=== PATIENT | female | born 1985 | race Caucasian/White ===

== ENCOUNTER 2017-11-20 12:38 | Emergency (ER) | payer SELFPAY ==
[~2017-11-20] VITALS: Ht 170.2 cm; Wt 137.0 kg
[~2017-11-20 12:38] MED LIST: MELO15TA2 PO; NUVAMIS PV
[2017-11-20 12:58] VITALS: BP 148/101; PULSE 128; RESP 20; TEMP 102.4
[2017-11-20] MEDS ORDERED: SODIUM CHLOR 0.9% 1000 ML INJ 1,000 ML IV SCH (13:55)
[2017-11-20] MEDS ORDERED: SODIUM CHLORIDE 0.9% FLUSH 10 ML FLUSH IV FLUSH PRN (14:00)
[2017-11-20] MEDS ORDERED: ACETAMINOPHEN 500 MG CPLT PO ONE (14:00)
[2017-11-20] MEDS ORDERED: ONDANSETRON HCL 4 MG/2 ML VIAL IVP ONE (14:00)
[2017-11-20] MEDS ORDERED: IBUPROFEN 600 MG TAB PO ONE (14:00)
[2017-11-20 14:07] VITALS: O2SAT 98
[2017-11-20 15:03] LABS: BACTERIA, URINE RARE /hpf; BILIRUBIN, URINE NEG (NEG); BLOOD, URINE MOD (NEG); GLUCOSE,URINE NEG (NEG); KETONE, URINE NEG (NEG); MUCUS URINE FEW /lpf (OCC); NITRITE,URINE NEG (NEG); SQUAMOUS EPITHELIAL CELL URINE 4 /hpf (0-5); URINE COLOR YELLOW (YELLW/STRAW); URINE LEUKOCYTE ESTERASE TRACE (NEG)
--- NOTE | 2017-11-20 15:04 | PD ---
HPI Chief Complaint: Cold / Flu Symptoms Time Seen by Provider: 13:48 Travel History International Travel<30 days: No Contact w/Intl Traveler<30days: No History of Present Illness HPI 32-year-old -[place] female presents emergency department with flulike symptoms for the past 3 days. She has general malaise, decreased appetite, nausea, no vomiting, no diarrhea, cough, upper respiratory congestion, fever, chills, and muscle aches. Patient denies significant shortness of breath but has cough without wheeze. Patient states she feels dehydrated. She denies urinary symptoms. No vaginal symptoms. She is allergic to penicillin PFSH Past Medical History ?: Not LMP: on it now Past Surgical History Tonsillectomy: Yes Social History Alcohol Use: No Tobacco Use: No Substance Use: No Allergies-Medications (Allergen,Severity, Reaction): Coded Allergies: penicillin G (Unverified Allergy, Severe, HIVES, 11/20/17) Reported Meds & Prescriptions Reported Meds & Active Scripts Active No Active Prescriptions or Reported Medications Review of Systems Except as stated in HPI: all other systems reviewed are Neg General / Constitutional: Positive: Fever, Chills Eyes: No: Visual changes HENT: Positive: Headaches, Lightheadedness, Sore Throat, Rhinitis, Rhinorrhea, Congestion, No: Vertigo, Nosebleed, Neck Stiffness, Neck Pain, Dental Difficulties, Earache Cardiovascular: No: Chest Pain or Discomfort Respiratory: Positive: Cough, No: Shortness of Breath, Wheezing, Sneezing, Orthopnea, Hemoptysis, Pleuritic Pain Gastrointestinal: Positive: Nausea, Loss of Appetite, No: Vomiting, Diarrhea, Abdominal Pain Genitourinary: Positive: Decreased Urinary Output, No: Urgency, Frequency, Dysuria Musculoskeletal: No: Pain Skin: No Rash Neurologic: No: Weakness Psychiatric: No: Depression Endocrine: No: Polydipsia Hematologic/Lymphatic: No: Easy Bruising Physical Exam Narrative GENERAL: Patient appears ill. SKIN: Warm and dry. Decreased pallor. Normal turgor. HEAD: Atraumatic. Normocephalic. EYES: Pupils equal and round. No scleral icterus. No injection or drainage. ENT: No nasal bleeding or discharge. Mucous membranes pink and moist. TMs are dull without injection. Posterior pharynx has no significant injection or exudate. No significant tonsillitis or exudate. Airways patent NECK: Trachea midline. Supple and nontender. CARDIOVASCULAR: Regular rate and rhythm. No murmurs gallops or rubs. RESPIRATORY: No accessory muscle use. Clear to auscultation. Breath sounds equal bilaterally. GASTROINTESTINAL: Abdomen soft, non-tender, nondistended. Hepatic and splenic margins not palpable. No CVA tenderness. MUSCULOSKELETAL: Extremities without clubbing, cyanosis, or edema. No obvious deformities. NEUROLOGICAL: Awake and alert. No obvious cranial nerve deficits. Motor grossly within normal limits. Five out of 5 muscle strength in the arms and legs. Normal speech. PSYCHIATRIC: Appropriate mood and affect; insight and judgment normal. Data Data Last Documented VS Vital Signs Date Time Temp Pulse Resp B/P (MAP) Pulse Ox O2 Delivery O2 Flow Rate FiO2 11/20/17 14:07 98 Room Air 11/20/17 12:58 102.4 128 20 148/101 (117) Orders Orders Acetaminophen (Tylenol) (11/20/17 14:00) Ibuprofen (Motrin) (11/20/17 14:00) Influenzae A/B Antigen (11/20/17 13:49) Urinalysis - C+S If Indicated (11/20/17 13:55) Iv Access Insert/Monitor (11/20/17 13:55) Ecg Monitoring (11/20/17 13:55) Oximetry (11/20/17 13:55) Ondansetron Inj (Zofran Inj) (11/20/17 14:00) Sodium Chlor 0.9% 1000 Ml Inj (Ns 1000 M (11/20/17 13:55) Sodium Chloride 0.9% Flush (Ns Flush) (11/20/17 14:00) Chest, Single Ap (11/20/17 13:55) Ed Urine Pregnancytest Poc (11/20/17 13:55) Labs Laboratory Tests Test 11/20/17 14:06 Urine Color YELLOW Urine Turbidity HAZY Urine pH 6.0 Urine Specific [place] 1.012 Urine Protein TRACE mg/dL Urine Glucose (UA) NEG mg/dL Urine Ketones NEG mg/dL Urine Occult Blood MOD Urine Nitrite NEG Urine Bilirubin NEG Urine Urobilinogen LESS THAN 2.0 MG/DL Urine Leukocyte Esterase TRACE Urine RBC /hpf Urine WBC 6 /hpf Urine Squamous Epithelial Cells 4 /hpf Urine Bacteria RARE /hpf Urine Mucus FEW /lpf Microscopic Urinalysis Comment CULT NOT INDICATED MDM Medical Decision Making Medical Screen Exam Complete: Yes Emergency Medical Condition: Yes Differential Diagnosis Influenza. Febrile illness. Dehydration. Nausea. Pneumonia. Narrative Course IV access is obtained. Patient is given 1000 mg acetaminophen p.o., 600 mg ibuprofen p.o., and Zofran 4 mg IV. Patient is given 1000 mL of normal saline bolus. Urinalysis, chest x-ray is ordered, and influenza is sent. Urinalysis is unremarkable. Chest x-ray is unremarkable. Rapid influenza is negative. Patient feels improved after her ibuprofen, Zofran, and Tylenol. Patient is discharged home with diagnosis of febrile illness/viral illness. She is given a prescription for Zofran 4 mg every 6 hours as needed nausea #12. Patient is to rest, push fluids, take ibuprofen and Tylenol as needed for fever , and return if symptoms worsen. Work note was given through Friday. Diagnosis Primary Impression: Systemic viral illness Patient Instructions: Acetaminophen (By mouth), General Instructions, Ibuprofen (By mouth), Ondansetron (By mouth, Into the mouth) Departure Forms: Work Release Enter return to work date: Nov 24, 2017 Additional Instructions: Urinalysis is unremarkable. Chest x-ray is unremarkable. Rapid influenza is negative. Patient feels improved after her ibuprofen, Zofran, and Tylenol. Patient is discharged home with diagnosis of febrile illness/viral illness. She is given a prescription for Zofran 4 mg every 6 hours as needed nausea #12. Patient is to rest, push fluids, take ibuprofen and Tylenol as needed for fever , and return if symptoms worsen. Work note was given through Friday. Med/Other Pt SpecificInfo: Prescription(s) given Scripts No Active Prescriptions or Reported Meds Disposition: 01 DISCHARGE HOME Condition: Stable Akin Mock Nov 20, 2017 15:04
--- NOTE | 2017-11-20 15:16 | RADRPT ---
EXAM DATE/TIME: 11/20/2017 14:45 [facility] COMPARISON: No previous studies available for comparison. INDICATIONS : Cough, fever, and shortness of breath for 4 days. MEDICAL HISTORY : None. SURGICAL HISTORY : None. ENCOUNTER: Initial ACUITY: 4 - 6 days PAIN SCORE: 0/10 LOCATION: Bilateral chest FINDINGS: A single view of the chest demonstrates the lungs to be symmetrically aerated without evidence of mas s, infiltrate or effusion. The cardiomediastinal contours are unremarkable. Osseous structures are intact. CONCLUSION: No acute disease. Shen Montenegro MD on November 20, 2017 at 15:13 Board Certified Radiologist. This report was verified electronically.
[2017-11-20] MEDS ORDERED: ZOFR4TAB PO (15:36)
[2017-11-20 15:49] VITALS: TEMP 99.2
== END 2017-11-20 16:01 | disposition home or self-care (01) ==
LOC: NEPD 12:38
DX: B34.9 Viral infection, unspecified (principal); Z88.0 Allergy status to penicillin
CPT/HCPCS: 71045; 81001; 84703; 87804; 96361; 96374; 99284; J2405; J7030